=== PATIENT | female | born 1990 | race African-American/Black ===

== ENCOUNTER 2016-09-09 11:02 | Emergency (ER) ==
[2016-09-09 11:15] VITALS: BP 115/072
[2016-09-09] MEDS ORDERED: MOTRIN PO ONE (11:34)
[2016-09-09] MEDS ORDERED: DECADRON IM ONE (11:34)
[2016-09-09] MEDS ORDERED: BICILLIN L-A IM ONE (11:34)
[2016-09-09] MEDS ORDERED: MBX SOLUTION MT ONE (11:35)
--- NOTE | 2016-09-09 11:38 | PROVIDER DOCUMENTATION ---
HPI-EENT General - General Chief Complaint: Sore Throat Stated Complaint: SORE THROAT Time Seen by Provider: 09/09/16 11:17 Source: patient Allergies/Adverse Reactions: Patient Allergies Allergy/AdvReac Type Severity Reaction Status Date / Time No Known Allergies Allergy Verified 01/15/16 05:45 Home Medications: Home Medication List Medication Instructions Recorded Confirmed Last Taken Type Amoxicillin/Potassium Clav 1 each PO BID #20 tablet 01/14/16 Unknown Rx [Augmentin 875-125 Tablet] Ketorolac [Toradol] 10 mg PO Q6H PRN PRN #20 tablet 01/14/16 Unknown Rx Prednisone 20 mg PO BID #10 tablet 01/14/16 Unknown Rx Acetaminophen with Codeine 1 each PO Q6H PRN PRN #14 tablet 01/15/16 Unknown Rx [Tylenol with Codeine #3 Tablet] Promethazine [Phenergan] 1 - 2 tab PO Q6H PRN PRN #18 tablet 01/15/16 Unknown Rx Amoxicillin/Pot Clavulanate 875 mg PO Q12HR #14 tablet 09/09/16 Unknown Rx [Augmentin] Diphenhyramine/Al&mg Oh/Lido [Mbx 15 ml MT Q4-6H PRN PRN #1 bottle 09/09/16 Unknown Rx Solution] Ibuprofen [Motrin] 800 mg PO Q8H PRN PRN #20 tablet 09/09/16 Unknown Rx Prednisone 20 mg PO DAILY #6 tablet 09/09/16 Unknown Rx - History of Present Illness-EENT General Nature of Presenting Problem: This pt presents today c complaints of severe sore throat, fever, chills and body aches that began acutely 2 days ago. EENT Location: reports: throat Quality of Pain: reports: aching, burning Severity: reports: severe Onset/Duration: reports: 2 days ago Timing: reports: still present Prearrival Treatment: Initiated no prearrival treatment Associated Symptoms: reports: fever, sore throat Similar Symptoms Previously?: No Recently seen or treated by another doctor?: No Review of Systems - Adult - REVIEW OF SYSTEMS - ADULT Constitutional: reports: chills, fever, fatique. denies: weight gain, weight loss Eyes: reports: no symptoms reported. denies: discharge, dry eyes Ears, Nose, Mouth & Throat: reports: throat pain. denies: ear discharge, ear pain Cardiovascular: reports: no symptoms reported. denies: chest pain, edema Respiratory: reports: no symptoms reported. denies: chronic cough, cough Gastrointestinal: reports: no symptoms reported. denies: abdominal pain, hematemesis Genitourinary: reports: no symptoms reported. denies: dysuria, discharge Musculoskeletal: reports: muscle aches. denies: bone pain, back pain Integumentary: reports: no symptoms reported. denies: hives, hair loss Neurological: reports: no symptoms reported. denies: ataxia, dizziness/vertigo Psychiatric: reports: no symptoms reported. denies: anxiety, anti-depressant use Endocrine: reports: no symptoms reported Hematologic/Lymphatic: reports: no symptoms reported Allergic/Immunologic: reports: no symptoms reported All Other Systems: Reviewed and Negative Past History - Adult - PAST MEDICAL HISTORY-ADULT Review of Records: reports: Old Records Reviewed, Nursing Assessment Review, Medications Reviewed, Social history reviewed & non-contributory. Major Childhood Illnesses: reports: denies history Cardiovascular: reports: denies history Respiratory: reports: denies history Gastrointestinal: reports: denies history Obstetrical/Gynecological: reports: denies history Genitourinary: reports: denies history Musculoskeletal: reports: denies history Neurological: reports: denies history Endocrine/Immune: reports: denies history Other Conditions: reports: denies history - PRIOR SURGERIES/PROCEDURES Surgical/Procedure History: reports: , other (eye) - PRIOR HOSPITALIZATIONS Prior Hospitalizations: reports: none - IMMUNIZATION STATUS Childhood Immunizations: See Nurse Assessment Flu Vaccine: See Nurse Assessment - FAMILY HISTORY Family History: reviewed, not pertinent Physical Exam- EENT - Physical Exam EENT Initial Vital Signs Reviewed: Yes General Appearance: alert, no apparent distress Eye Exam: bilateral eye: normal inspection, PERRL, EOMI Ear Exam: bilateral ear: auricle normal, canal normal, TM normal Nasal Exam: normal inspection Throat Exam: normal mouth inspection, pharynx tenderness, tonsillar exudate, tonsillar swelling (bilateral, beefy red). negative: excessive drooling, foreign body, mandibular swelling, maxillary swelling, pharynx swelling Neck: non-tender, full range of motion, supple, normal inspection. negative: limited range of motion, lymphadenopathy, meningismus Respiratory: chest non-tender, lungs clear, normal breath sounds, no pleuratic chest pain, no respiratory distress, no accessory muscle use Cardiovascular: normal peripheral pulses, regular rate, rhythm, no edema, no gallop, no JVD, no murmur Abdominal Exam: normal bowel sounds, non tender, soft Back Exam: normal inspection, no CVA tenderness, no vertebral tenderness Extremity: normal range of motion, non-tender, normal gait, normal inspection Integumentary: normal color, normal turgor, warm/dry Neurologic: grossly normal, no motor/sensory deficits Psych/Mental Status: normal mood/affect, normal thought content, normal thought process, oriented x 3 Progress - PLAN OF CARE/RESULTS Progress/Plan/Lab Results: Orders Category Date Time Status MONO SCREEN [SERO] Stat Lab 09/09/16 11:36 Ordered Dexamethasone [Decadron] Med 09/09/16 11:34 Discontinued 10 mg IM NOW ONE Diphenhyramine/Al&mg Oh/Lido [Mbx Solution] Med 09/09/16 11:35 Discontinued 15 ml MT NOW ONE Ibuprofen [Motrin] Med 09/09/16 11:34 Discontinued 800 mg PO NOW ONE Penicillin G Benzathine [Bicillin l-A] Med 09/09/16 11:34 Discontinued 1,200,000 unit IM NOW ONE Vital Signs Temp Pulse Resp BP Pulse Ox 09/09/16 11:11 100.2 F H 98 H 20 115/072 100 No Known Allergies Allergy (Verified 01/15/16 05:45) Amoxicillin/Potassium Clav [Augmentin 875-125 Tablet] 1 each PO BID #20 tablet 01/14/16 Ketorolac [Toradol] 10 mg PO Q6H PRN PRN #20 tablet 01/14/16 Prednisone 20 mg PO BID #10 tablet 01/14/16 Acetaminophen with Codeine [Tylenol with Codeine #3 Tablet] 1 each PO Q6H PRN PRN #14 tablet 01/15/16 Promethazine [Phenergan] 1 - 2 tab PO Q6H PRN PRN #18 tablet 01/15/16 Laboratory Tests 09/09/16 11:49 Group A Strep Rapid POSITIVE A Departure - Departure Time of Disposition Order: 12:08 DIAGNOSIS: Acute streptococcal tonsillitis Qualifiers: Streptococcal tonsillitis recurrence: non-recurrent Qualified Code(s): J03.00 - Acute streptococcal tonsillitis, unspecified Disposition: HOME 01 Certified Medical Emergency: Urgent Condition: Good Additional Instructions: Take medication as prescribed. Rest and stay well hydrated. Follow up with your primary care provider or ENT. Return to the ER for any new or worsening symptoms. ED Follow Up Instructions: You have been treated by a care provider in the Emergency Department. These instructions are being provided to you so you can have an understanding of how to care for yourself upon discharge. Upon discharge from the Emergency Department, you are responsible for making arrangements for follow-up care by a physician of your choice. Take all prescribed medications as directed. Return to the Emergency Department immediately for any new or worsening symptoms. You may call the Physician Referral phone number at [phone] to obtain a list of Physicians who are taking new patients. Prescriptions: Amoxicillin/Pot Clavulanate [Augmentin] 875 mg PO Q12HR #14 tablet Diphenhyramine/Al&mg Oh/Lido [Mbx Solution] 15 ml MT Q4-6H PRN PRN #1 bottle PRN Reason: Sore throat Ibuprofen [Motrin] 800 mg PO Q8H PRN PRN #20 tablet PRN Reason: Fever, Pain Prednisone 20 mg PO DAILY #6 tablet Referrals: None,PCP [Primary Care Provider] - Bonifacio Velazquez MD [STAFF PHYSICIAN] - Attestation - Physician/ MYA Attestation Patient care was provided by Advanced Practice Provider:: Yes Advanced Practice Provider:: Mohsen Bah Advanced Practice Provider documentation review:: The Mid-level provider documentation, treatment plan and medical decision making was reviewed by the physician who agrees with all treatment and medical decision making by the P.
[2016-09-09] MEDS ORDERED: MOTRIN LIQUID ONE (12:21)
== END 2016-09-09 12:40 | disposition home or self-care (01) ==
LOC: P.ED 11:02
DX: J03.00 Acute streptococcal tonsillitis, unspecified (principal); J02.9 Acute pharyngitis, unspecified; R50.9 Fever, unspecified; M79.1 Myalgia; R53.83 Other fatigue; R22.1 Localized swelling, mass and lump, neck
CPT/HCPCS: 36415; 86308; 87430; 96372; J0561